=== PATIENT | male | born 1975 | race African-American/Black ===

== ENCOUNTER 2016-03-06 23:56 | Emergency (ER) | payer OTHER ==
[~2016-03-06] VITALS: Ht 170.2 cm; Wt 88.9 kg
[2016-03-07 00:38] VITALS: BP 129/90
== END 2016-03-07 05:10 | disposition home or self-care (01) ==
LOC: ER 23:58
DX: M25.511 Pain in right shoulder (principal); G89.29 Other chronic pain; F17.200 Nicotine dependence, unspecified, uncomplicated; Z88.8 Allergy status to other drugs, medicaments and biological substances
CPT/HCPCS: A4606; Z7502; Z7610

== ENCOUNTER 2016-04-15 01:19 | Emergency (ER) | payer OTHER ==
[~2016-04-15] VITALS: Ht 170.2 cm; Wt 99.3 kg
[2016-04-15 01:56] VITALS: BP 143/87
== END 2016-04-15 03:40 | disposition home or self-care (01) ==
LOC: ER 01:19
DX: Z76.0 Encounter for issue of repeat prescription (principal); G89.29 Other chronic pain; F17.200 Nicotine dependence, unspecified, uncomplicated; Z59.0 Homelessness; Z98.2 Presence of cerebrospinal fluid drainage device; Z88.8 Allergy status to other drugs, medicaments and biological substances; Z91.018 Allergy to other foods
CPT/HCPCS: A4606; Z7610

== ENCOUNTER 2016-04-28 01:33 | Emergency (ER) | payer OTHER ==
[~2016-04-28] VITALS: Ht 170.2 cm; Wt 86.6 kg
[2016-04-28 01:49] VITALS: BP 132/83
== END 2016-04-28 01:58 | disposition left against medical advice (07) ==
LOC: ER 01:33
DX: Z53.21 Procedure and treatment not carried out due to patient leaving prior to being seen by health care provider (principal)
CPT/HCPCS: A4606; Z7610

== ENCOUNTER 2016-04-30 01:17 | Emergency (ER) | payer OTHER | END 2016-04-30 03:22 | disposition left against medical advice (07) | LOC: ER 01:20 | DX: Z53.21 Procedure and treatment not carried out due to patient leaving prior to being seen by health care provider (principal) ==

== ENCOUNTER 2016-05-01 20:11 | Emergency (ER) | payer OTHER ==
[~2016-05-01] VITALS: Ht 177.8 cm; Wt 90.7 kg
[2016-05-01 20:44] LABS: BASOPHILS % (AUTO) 0.5 % (0.0-2.0); DIFF TOTAL % 100 %; EOSINOPHILS # (AUTO) 0.3 /CMM (0.0-0.7); EOSINOPHILS % (AUTO) 3.9 % (0.0-6.0); HEMATOCRIT 40 % (39-51); HEMOGLOBIN 13.8 g/dL (13.5-17.5); LYMPHOCYTES # (AUTO) 2.7 /CMM (0.8-4.8); MEAN CORPUSCULAR HEMOGLOBIN 33 PG (26.0-33.0); MEAN CORPUSCULAR HGB CONC 34 g/dl (31.0-36.0); MEAN CORPUSCULAR VOLUME 97 fL (80-96); MONOCYTES # (AUTO) 0.4 /CMM (0.1-1.30); MONOCYTES % (AUTO) 5.8 % (2.0-12.0); NEUTROPHILS # (AUTO) 3.4 /CMM (1.8-8.9); NEUTROPHILS % (AUTO) 49.8 % (43.0-81.0); PLATELET COUNT (AUTO) 255 /CMM (150-450); RED BLOOD CELL COUNT(AUTO) 4.16 MIL/uL (4.5-6.0); WHITE BLOOD COUNT (AUTO) 6.8 K/uL (4.3-11.0)
[2016-05-01 20:51] LABS: KETONES,URINE Negative (NEGATIVE); LEUKOCYTE ESTERASE ,URINE Negative (NEGATIVE); PH,URINE 5.5 (5.0-8.0)
[2016-05-01 20:53] LABS: ANION GAP 9 (5-14); CALCIUM, SERUM 8.8 mg/dL (8.5-10.1); CARBON DIOXIDE 32 mmol/L (21-32); CHLORIDE 107 mmol/L (98-107); CREATININE 1.1 mg/dL (0.6-1.3); GFR 91 mL/min (>60); GLUCOSE 103 mg/dL (74-106); SODIUM SERUM 144 mmol/L (136-145); UREA NITROGEN, BLOOD 7 mg/dL (7-18)
[2016-05-01 20:59] LABS: ADD UA MICROSCOPIC YES
[2016-05-01 21:00] LABS: ALANINE AMINOTRANSFERASE 33 U/L (12-78); ALBUMIN 3.9 g/dL (3.4-5.0); ASPARTATE AMINOTRANSFERASE 27 U/L (15-37); BILIRUBIN,DIRECT 0.1 mg/dL (0.0-0.2); BILIRUBIN,TOTAL 0.3 mg/dL (0.2-1.0); INDIRECT BILIRUBIN 0.2 mg/dL (0.0-1.1); SALICYLATE 4.3 mg/dL (2.8-20.0); TOTAL PROTEIN, SERUM 7.7 g/dL (6.4-8.2)
[2016-05-01 21:01] LABS: ACETAMINOPHEN < 2 ug/ml (10-30)
[2016-05-01 21:08] LABS: ADD URINE CULTURE NO; WBC,URINE 0-2 /HPF (0-3)
[2016-05-01 21:16] LABS: CANNABINOID, URINE NEGATIVE (NEGATIVE); PHENCYCLIDINE SCREEN,URINE NEGATIVE (NEGATIVE)
[2016-05-01 21:27] VITALS: BP 138/71
== END 2016-05-01 21:24 | disposition home or self-care (01) ==
LOC: ER 20:12
DX: F32.9 Major depressive disorder, single episode, unspecified (principal); I10 Essential (primary) hypertension; G40.909 Epilepsy, unspecified, not intractable, without status epilepticus; F31.9 Bipolar disorder, unspecified; F20.9 Schizophrenia, unspecified; Z98.890 Other specified postprocedural states; Z88.8 Allergy status to other drugs, medicaments and biological substances; F17.200 Nicotine dependence, unspecified, uncomplicated; Z59.0 Homelessness; Z91.018 Allergy to other foods
CPT/HCPCS: 36415; 80048; 80076; 80305; 80329; 81001; 85025; 99284; A4606; G0480 ×2; Z7610; 81000-TC; G6039-TC

== ENCOUNTER 2016-05-19 04:24 | Emergency (ER) | payer OTHER ==
[~2016-05-19] VITALS: Ht 170.2 cm; Wt 79.4 kg
[2016-05-19 04:28] VITALS: BP 131/95
[2016-05-19] MEDS ORDERED: IBUPROFEN 400 MG TABLET ONE (04:30)
[2016-05-19] MEDS ORDERED: IBUPROFEN 400 MG TABLET PO ONE (05:00)
== END 2016-05-19 04:38 | disposition home or self-care (01) ==
LOC: ER 04:24
DX: M25.561 Pain in right knee (principal); G89.29 Other chronic pain; F17.200 Nicotine dependence, unspecified, uncomplicated; Z76.5 Malingerer [conscious simulation]; Z98.2 Presence of cerebrospinal fluid drainage device; Z59.0 Homelessness; Z88.8 Allergy status to other drugs, medicaments and biological substances; Z91.018 Allergy to other foods
CPT/HCPCS: 99282; A4606; Z7610

== ENCOUNTER 2016-06-06 02:46 | Emergency (ER) | payer OTHER ==
[~2016-06-06] VITALS: Ht 170.2 cm; Wt 85.7 kg
[2016-06-06] MEDS ORDERED: OLANZAPINE 5 MG TABLET ONE (03:16)
[2016-06-06] MEDS ORDERED: OLANZAPINE 5 MG TABLET PO ONE (03:30)
[2016-06-06] MEDS ORDERED: OLANZAPINE 5 MG/TAB.RAPDIS PO ONE (03:30)
--- NOTE | 2016-06-06 03:32 | NUR ---
PT PRESENTED TO THE ER WITH A C/O SI WITHOUT A PLAN. PT STATED THAT HE WANTS TO HURT SOMEONE NAMED CHRISTOPHER, BUT DOES NOT KNOW ANYONE BY THAT NAME. PT AMBULATED TO BED #15 AND CHANGED INTO A GOWN.
[2016-06-06 03:34] LABS: BASOPHILS % (AUTO) 0.2 % (0.0-2.0); EOSINOPHILS # (AUTO) 0.2 /CMM (0.0-0.7); EOSINOPHILS % (AUTO) 2.7 % (0.0-6.0); HEMATOCRIT 41 % (39-51); HEMOGLOBIN 13.9 g/dL (13.5-17.5); LYMPHOCYTES # (AUTO) 2.2 /CMM (0.8-4.8); LYMPHOCYTES % (AUTO) 36.3 % (20.0-44.0); MEAN CORPUSCULAR HEMOGLOBIN 33 PG (26.0-33.0); MEAN CORPUSCULAR HGB CONC 34 g/dl (31.0-36.0); MEAN CORPUSCULAR VOLUME 97 fL (80-96); MONOCYTES # (AUTO) 0.5 /CMM (0.1-1.30); MONOCYTES % (AUTO) 7.7 % (2.0-12.0); NEUTROPHILS # (AUTO) 3.2 /CMM (1.8-8.9); NEUTROPHILS % (AUTO) 53.1 % (43.0-81.0); PLATELET COUNT (AUTO) 240 /CMM (150-450); RDW COEFFICIENT OF VARIATION 14.9 (11.5-15.0); RED BLOOD CELL COUNT(AUTO) 4.24 MIL/uL (4.5-6.0)
[2016-06-06 03:49] LABS: ALBUMIN 3.6 g/dL (3.4-5.0); BILIRUBIN,DIRECT 0.1 mg/dL (0.0-0.2); BILIRUBIN,TOTAL 0.2 mg/dL (0.2-1.0); CALCIUM, SERUM 8.2 mg/dL (8.5-10.1); CREATININE 1.1 mg/dL (0.6-1.3); SALICYLATE 3.6 mg/dL (2.8-20.0); TOTAL PROTEIN, SERUM 7.4 g/dL (6.4-8.2)
--- NOTE | 2016-06-06 03:54 | NUR ---
PT APPEARS TO BE SLEEPING SOUNDLY WITH NO S/S OF PAIN OR DISTRESS.
--- NOTE | 2016-06-06 05:11 | NUR ---
PT APPEARS TO BE RESTING COMFORTABLY WITH NO S/S OF PAIN OR DISTRESS. PT TO GIVE A URINE SAMPLE.
--- NOTE | 2016-06-06 05:18 | NUR ---
URINE SAMPLE OBTAINED AND LAB CALLED FOR P/U.
[2016-06-06 05:28] LABS: APPEARANCE,URINE CLEAR (CLEAR); BILIRUBIN,URINE NEGATIVE (NEGATIVE); BLOOD, URINE 2+ Ery/uL (NEGATIVE); COLOR,URINE YELLOW (YELLOW); KETONES,URINE NEGATIVE (NEGATIVE); LEUKOCYTE ESTERASE ,URINE NEGATIVE (NEGATIVE); NITRITE, URINE NEGATIVE (NEGATIVE); PROTEIN,URINE NEGATIVE (NEGATIVE); UGLUCOSE NEGATIVE (NEGATIVE); UROBILINOGEN,URINE 0.2 EU/dL (0.2)
[2016-06-06 05:47] LABS: PHENCYCLIDINE SCREEN,URINE NEGATIVE (NEGATIVE)
[2016-06-06 05:48] LABS: ADD URINE CULTURE NO; BACTERIA,URINE None seen /HPF (None Seen); CANNABINOID, URINE POSITIVE (NEGATIVE); MUCUS,URINE Rare /LPF (None Seen); SQUAMOUS EPITHELIAL CELL,UR Rare /HPF (None Seen); WBC,URINE 0-2 /HPF (0-3)
[2016-06-06 06:43] VITALS: BP 121/76
--- NOTE | 2016-06-06 06:48 | NUR ---
PT WOKE UP AND IS STILL EXPRESSING SI. DR. WEST IS AWARE.
--- NOTE | 2016-06-06 07:17 | NUR ---
REPORT GIVEN TO RAHEL PINA FOR [facility].
--- NOTE | 2016-06-06 08:05 | NUR ---
ALFREDO TANG CALLED [phone], ETA ~ 60 MIN
--- NOTE | 2016-06-06 09:10 | NUR ---
P[employer] TECHNICIAN AT BEDSIDE
--- NOTE | 2016-06-06 11:10 | NUR ---
report given to scott vanegas from [facility] for eyal
--- NOTE | 2016-06-06 11:15 | NUR ---
[facility] CALLED ETA ~ 45-60 MIN
--- NOTE | 2016-06-06 13:10 | NUR ---
Patient eloped from facility. ER MD notified.
== END 2016-06-06 13:10 | disposition left against medical advice (07) ==
LOC: ER 02:49
DX: F25.9 Schizoaffective disorder, unspecified (principal); F12.10 Cannabis abuse, uncomplicated; F17.200 Nicotine dependence, unspecified, uncomplicated; F31.9 Bipolar disorder, unspecified; Z91.19 Patient's noncompliance with other medical treatment and regimen; Z59.0 Homelessness; Z98.2 Presence of cerebrospinal fluid drainage device; Z88.8 Allergy status to other drugs, medicaments and biological substances; Z91.018 Allergy to other foods
CPT/HCPCS: 36415; 80048-TC; 80076-TC; 80305; 81000-TC; 85025-TC; A4606; G0480; G6039-TC; Z7610

== ENCOUNTER 2016-06-24 22:12 | Emergency (ER) | payer OTHER ==
[~2016-06-24] VITALS: Ht 172.7 cm; Wt 74.8 kg
--- NOTE | 2016-06-24 23:00 | NUR ---
PT BIB SELF C/O PERIUMBILICAL ABD PAIN X2 DAYS, WHICH GETS WORSE AFTER EATING. DENIES N/V/D/DYSURIA/HEMATURIA/CONSTIPATION. RESP EVEN UNLABORED. SKIN WARM NONDIAPHORETIC. NAD NOTED. AMBULATORY WITH STEADY GAIT. PT REPORTS DRINKING ETOH 2X WEEKLY, SMOKES CIGARETTES AND MARIJUANA; DOES NOT APPEAR UNDER THE INFLUENCE AT THIS TIME. IN ER BED 09.
--- NOTE | 2016-06-25 00:06 | NUR ---
Magda ruiz in [facility] - 06/25/16 at 0112 by [facility] REPORT GIVEN TO CAPRI LEGGETT RN WALE
[2016-06-25 01:11] VITALS: BP 127/68
--- NOTE | 2016-06-25 01:12 | NUR ---
Patient is resting comfortably in bed with eyes closed. Easily aroused. VSS
[2016-06-25 01:20] LABS: BASOPHILS # (AUTO) 0.1 /CMM (0.0-0.2); BASOPHILS % (AUTO) 1.2 % (0.0-2.0); EOSINOPHILS # (AUTO) 0.1 /CMM (0.0-0.7); EOSINOPHILS % (AUTO) 1.7 % (0.0-6.0); HEMATOCRIT 39 % (39-51); HEMOGLOBIN 13.3 g/dL (13.5-17.5); LYMPHOCYTES # (AUTO) 2.9 /CMM (0.8-4.8); LYMPHOCYTES % (AUTO) 43.7 % (20.0-44.0); MEAN CORPUSCULAR HEMOGLOBIN 33 PG (26.0-33.0); MEAN CORPUSCULAR HGB CONC 34 g/dl (31.0-36.0); MEAN CORPUSCULAR VOLUME 97 fL (80-96); MONOCYTES # (AUTO) 0.5 /CMM (0.1-1.30); MONOCYTES % (AUTO) 6.8 % (2.0-12.0); NEUTROPHILS # (AUTO) 3.1 /CMM (1.8-8.9); NEUTROPHILS % (AUTO) 46.6 % (43.0-81.0); PLATELET COUNT (AUTO) 238 /CMM (150-450); RDW COEFFICIENT OF VARIATION 14.6 (11.5-15.0); RED BLOOD CELL COUNT(AUTO) 4.04 MIL/uL (4.5-6.0); WHITE BLOOD COUNT (AUTO) 6.7 K/uL (4.3-11.0)
[2016-06-25 01:30] LABS: CALCIUM, SERUM 8.4 mg/dL (8.5-10.1); CREATININE 1.2 mg/dL (0.6-1.3); POTASSIUM 3.7 mmol/L (3.5-5.1)
[2016-06-25 01:32] LABS: INR 1.01 (0.87-1.13); PROTHROMBIN TIME 10.8 SECS (9.5-12.7)
[2016-06-25 01:36] LABS: ALBUMIN 3.5 g/dL (3.4-5.0); BILIRUBIN,TOTAL 0.2 mg/dL (0.2-1.0); TOTAL PROTEIN, SERUM 7.1 g/dL (6.4-8.2)
--- NOTE | 2016-06-25 01:45 | NUR ---
Patient discharged to home in stable condition. Written and verbal after care instructions given. Patient verbalizes understanding of instruction. Ambulatory with a steady gait.
== END 2016-06-25 01:45 | disposition home or self-care (01) ==
LOC: ER 22:16
DX: R10.84 Generalized abdominal pain (principal); F31.9 Bipolar disorder, unspecified; F20.9 Schizophrenia, unspecified; G40.909 Epilepsy, unspecified, not intractable, without status epilepticus; Z59.0 Homelessness; Z88.8 Allergy status to other drugs, medicaments and biological substances; Z91.018 Allergy to other foods; Z98.2 Presence of cerebrospinal fluid drainage device
CPT/HCPCS: 36415; 80048-TC; 80076-TC; 83690-TC; 85025-TC; 85730-TC; A4606; Z7610

== ENCOUNTER 2016-10-17 03:42 | Emergency (ER) | payer OTHER ==
[~2016-10-17] VITALS: Ht 177.8 cm; Wt 90.7 kg
--- NOTE | 2016-10-17 03:56 | NUR ---
PT TO ER C/O SUICIDAL IDEATION AND DEPRESSION. PT DENIES ANY MEDICAL COMPLAINT. PT TO ER BED, CHANGED INTO GOWN AND CONNECTED TO MONITOR. PT VITAL SIGNS NORMAL. SUICIDE PRECAUTIONS IMPLEMENTED. WILL CONT TO MONITOR PT.
--- NOTE | 2016-10-17 03:57 | NUR ---
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
[2016-10-17 04:10] LABS: BASOPHILS # (AUTO) 0.1 /CMM (0.0-0.2); BASOPHILS % (AUTO) 1.1 % (0.0-2.0); EOSINOPHILS # (AUTO) 0.2 /CMM (0.0-0.7); EOSINOPHILS % (AUTO) 2.7 % (0.0-6.0); HEMATOCRIT 42 % (39-51); HEMOGLOBIN 14.5 g/dL (13.5-17.5); LYMPHOCYTES # (AUTO) 2.3 /CMM (0.8-4.8); LYMPHOCYTES % (AUTO) 36.6 % (20.0-44.0); MEAN CORPUSCULAR HEMOGLOBIN 34 PG (26.0-33.0); MEAN CORPUSCULAR HGB CONC 35 g/dl (31.0-36.0); MEAN CORPUSCULAR VOLUME 98 fL (80-96); MONOCYTES # (AUTO) 0.4 /CMM (0.1-1.30); NEUTROPHILS # (AUTO) 3.4 /CMM (1.8-8.9); NEUTROPHILS % (AUTO) 53.6 % (43.0-81.0); PLATELET COUNT (AUTO) 279 /CMM (150-450); RDW COEFFICIENT OF VARIATION 14.8 (11.5-15.0); RED BLOOD CELL COUNT(AUTO) 4.26 MIL/uL (4.5-6.0); WHITE BLOOD COUNT (AUTO) 6.4 K/uL (4.3-11.0)
[2016-10-17 04:26] LABS: CALCIUM, SERUM 8.4 mg/dL (8.5-10.1); CREATININE 1.2 mg/dL (0.6-1.3); POTASSIUM 4.1 mmol/L (3.5-5.1)
[2016-10-17 04:28] LABS: APPEARANCE,URINE CLEAR (CLEAR); BILIRUBIN,URINE NEGATIVE (NEGATIVE); BLOOD, URINE 3+ Ery/uL (NEGATIVE); COLOR,URINE YELLOW (YELLOW); KETONES,URINE NEGATIVE (NEGATIVE); LEUKOCYTE ESTERASE ,URINE NEGATIVE (NEGATIVE); NITRITE, URINE NEGATIVE (NEGATIVE); PROTEIN,URINE NEGATIVE (NEGATIVE); UGLUCOSE NEGATIVE (NEGATIVE); UROBILINOGEN,URINE 0.2 EU/dL (0.2)
[2016-10-17 04:35] LABS: BILIRUBIN,DIRECT 0.1 mg/dL (0.0-0.2); BILIRUBIN,TOTAL 0.2 mg/dL (0.2-1.0); SALICYLATE 3.4 mg/dL (2.8-20.0); TOTAL PROTEIN, SERUM 7.9 g/dL (6.4-8.2)
[2016-10-17 04:40] LABS: BACTERIA,URINE None seen /HPF (None Seen); SQUAMOUS EPITHELIAL CELL,UR Few /HPF (None Seen); URIC ACID CRYSTALS,URINE Many /HPF (None Seen); WBC,URINE 0-2 /HPF (0-3)
--- NOTE | 2016-10-17 07:00 | NUR ---
Patient is resting comfortably in bed with eyes closed. Easily aroused. VSS
--- NOTE | 2016-10-17 08:37 | NUR ---
Patient is resting comfortably in bed with eyes closed. Easily aroused. VSS
[2016-10-17 08:46] VITALS: BP 130/86
--- NOTE | 2016-10-17 10:08 | NUR ---
ACCEPTED BY DR CHAVEZ TO [facility] [phone]
--- NOTE | 2016-10-17 10:24 | NUR ---
REPORT GIVEN TO NURSE DAVID SANTIZO WILL GO TO THE ED FIRST FOR REGISTRATION [id number]
--- NOTE | 2016-10-17 10:37 | NUR ---
CALLED TRANSPORT ETA 60 MIN REMY DRISCOLL
--- NOTE | 2016-10-17 11:25 | NUR ---
PT REFUSED TRANSFER TO [facility] AND WALKED OUT FROM THE ER.
--- NOTE | 2016-10-17 11:25 | NUR ---
CALLED [facility] TO CANCEL TRANSPORTATION
--- NOTE | 2016-10-17 11:26 | NUR ---
CALLED [facility] SPOKE WITH INTAKE DEAN NOTIFIED HER THAT PATIENT REFUSED TRANSPORTATION AND ADMISSION
== END 2016-10-17 11:28 | disposition left against medical advice (07) ==
LOC: ER 03:45
DX: F10.129 Alcohol abuse with intoxication, unspecified (principal); R45.851 Suicidal ideations; F32.9 Major depressive disorder, single episode, unspecified; F25.9 Schizoaffective disorder, unspecified; F31.9 Bipolar disorder, unspecified; Z59.0 Homelessness; Z98.2 Presence of cerebrospinal fluid drainage device; Z88.8 Allergy status to other drugs, medicaments and biological substances; Z91.02 Food additives allergy status
CPT/HCPCS: 36415; 80048; 80076; 80305; 80329; 81001; 85025; 99284; A4606; G0480 ×2; Z7610; 81000-TC

== ENCOUNTER 2016-11-29 21:16 | Emergency (ER) | payer OTHER ==
[~2016-11-29] VITALS: Ht 170.2 cm; Wt 88.0 kg
[2016-11-29 21:18] VITALS: BP 132/85
== END 2016-11-29 22:27 | disposition home or self-care (01) ==
LOC: ER 21:17
DX: S01.511A Laceration without foreign body of lip, initial encounter (principal); F10.129 Alcohol abuse with intoxication, unspecified; Z98.2 Presence of cerebrospinal fluid drainage device; Z88.8 Allergy status to other drugs, medicaments and biological substances; Z91.018 Allergy to other foods; Z59.0 Homelessness; Y04.8XXA Assault by other bodily force, initial encounter; Y92.89 Other specified places as the place of occurrence of the external cause; Y93.89 Activity, other specified; Y99.8 Other external cause status
CPT/HCPCS: 12011; 99283; A4606; A6403; J3490 ×2; Z7610

== ENCOUNTER 2016-12-09 07:12 | Emergency (ER) | payer OTHER ==
[~2016-12-09] VITALS: Ht 170.2 cm; Wt 86.2 kg
[2016-12-09 07:16] VITALS: BP 150/80
--- NOTE | 2016-12-09 07:29 | NUR ---
urine obtained sent to lab
--- NOTE | 2016-12-09 07:40 | NUR ---
lab at bedside for draw
[2016-12-09 07:46] LABS: BASOPHILS % (AUTO) 0.3 % (0.0-2.0); EOSINOPHILS % (AUTO) 0.1 % (0.0-6.0); HEMATOCRIT 44 % (39-51); HEMOGLOBIN 15.1 g/dL (13.5-17.5); LYMPHOCYTES # (AUTO) 1.1 /CMM (0.8-4.8); LYMPHOCYTES % (AUTO) 17.7 % (20.0-44.0); MEAN CORPUSCULAR HEMOGLOBIN 34 PG (26.0-33.0); MEAN CORPUSCULAR HGB CONC 34 g/dl (31.0-36.0); MEAN CORPUSCULAR VOLUME 99 fL (80-96); MONOCYTES # (AUTO) 0.3 /CMM (0.1-1.30); MONOCYTES % (AUTO) 4.8 % (2.0-12.0); NEUTROPHILS # (AUTO) 4.7 /CMM (1.8-8.9); NEUTROPHILS % (AUTO) 77.1 % (43.0-81.0); PLATELET COUNT (AUTO) 293 /CMM (150-450); RDW COEFFICIENT OF VARIATION 13.6 (11.5-15.0); WHITE BLOOD COUNT (AUTO) 6.1 K/uL (4.3-11.0)
[2016-12-09 07:50] LABS: APPEARANCE,URINE SL CLOUDY (CLEAR); BILIRUBIN,URINE NEGATIVE (NEGATIVE); BLOOD, URINE 3+ Ery/uL (NEGATIVE); COLOR,URINE YELLOW (YELLOW); KETONES,URINE TRACE (NEGATIVE); LEUKOCYTE ESTERASE ,URINE NEGATIVE (NEGATIVE); NITRITE, URINE NEGATIVE (NEGATIVE); PROTEIN,URINE 1+ mg/dl (NEGATIVE); UGLUCOSE NEGATIVE (NEGATIVE)
[2016-12-09 07:59] LABS: BACTERIA,URINE None seen /HPF (None Seen); SQUAMOUS EPITHELIAL CELL,UR 0-2 /HPF (None Seen); WBC,URINE 0-2 /HPF (0-3)
[2016-12-09] MEDS ORDERED: LEVETIRACETAM (250 MG) 250 MG TABLET PO ONE ×2 (08:10→08:30)
[2016-12-09 08:27] LABS: BILIRUBIN,DIRECT 0.1 mg/dL (0.0-0.2); BILIRUBIN,TOTAL 0.5 mg/dL (0.2-1.0); CALCIUM, SERUM 9.2 mg/dL (8.5-10.1); CREATININE 1.1 mg/dL (0.6-1.3); POTASSIUM 4.2 mmol/L (3.5-5.1); TOTAL PROTEIN, SERUM 8.3 g/dL (6.4-8.2)
[2016-12-09 08:48] LABS: SALICYLATE 1.8 mg/dL (2.8-20.0)
--- NOTE | 2016-12-09 09:26 | NUR ---
CALLED PETER MCGINNIS FOR EVAL ETA 1 HOUR
--- NOTE | 2016-12-09 12:15 | NUR ---
PER [facility]ER WAITING ON [facility] [employer]
--- NOTE | 2016-12-09 13:19 | NUR ---
CALLED [facility] TO SET UP S TRANSPORT ETA [phone] TRIP#[id number]
--- NOTE | 2016-12-09 13:23 | NUR ---
REPORT GIVEN TO ROSALBA MCGINNIS FROM [facility]
== END 2016-12-09 13:49 ==
LOC: ER 07:14
DX: R45.851 Suicidal ideations (principal); G40.909 Epilepsy, unspecified, not intractable, without status epilepticus; F31.9 Bipolar disorder, unspecified; F10.10 Alcohol abuse, uncomplicated; F25.9 Schizoaffective disorder, unspecified; Z59.0 Homelessness; Z88.8 Allergy status to other drugs, medicaments and biological substances; Z71.6 Tobacco abuse counseling; Z91.018 Allergy to other foods; Z98.2 Presence of cerebrospinal fluid drainage device
CPT/HCPCS: 36415; 80048; 80076; 80305; 80329; 81001; 85025; 99285; A4606; G0480 ×2; Z7610; 81000-TC

== ENCOUNTER 2016-12-19 06:19 | Emergency (ER) | payer OTHER ==
[~2016-12-19] VITALS: Ht 172.7 cm; Wt 72.6 kg
--- NOTE | 2016-12-19 06:38 | NUR ---
PT BIB SELF TO ER BED 9 AMBULATORY. PT STATES HE IS DEPRESSED AND WANTS TO OVERDOSE ON SERIQUEL DENIES HI. VSS/RESP EVEN AND UNLABORED/NAD NOTED/SKIN WARM AND DRY.
[2016-12-19 06:41] LABS: BASOPHILS % (AUTO) 0.8 % (0.0-2.0); EOSINOPHILS % (AUTO) 0.7 % (0.0-6.0); HEMATOCRIT 45 % (39-51); HEMOGLOBIN 15.1 g/dL (13.5-17.5); LYMPHOCYTES # (AUTO) 1.8 /CMM (0.8-4.8); LYMPHOCYTES % (AUTO) 36.1 % (20.0-44.0); MEAN CORPUSCULAR HEMOGLOBIN 33 PG (26.0-33.0); MEAN CORPUSCULAR HGB CONC 34 g/dl (31.0-36.0); MEAN CORPUSCULAR VOLUME 99 fL (80-96); MONOCYTES # (AUTO) 0.4 /CMM (0.1-1.30); MONOCYTES % (AUTO) 7.5 % (2.0-12.0); NEUTROPHILS # (AUTO) 2.8 /CMM (1.8-8.9); NEUTROPHILS % (AUTO) 54.9 % (43.0-81.0); PLATELET COUNT (AUTO) 269 /CMM (150-450); RDW COEFFICIENT OF VARIATION 13.2 (11.5-15.0); RED BLOOD CELL COUNT(AUTO) 4.54 MIL/uL (4.5-6.0); WHITE BLOOD COUNT (AUTO) 5.1 K/uL (4.3-11.0)
[2016-12-19 06:44] LABS: APPEARANCE,URINE CLEAR (CLEAR); BILIRUBIN,URINE NEGATIVE (NEGATIVE); BLOOD, URINE 3+ Ery/uL (NEGATIVE); COLOR,URINE DARK YELLO (YELLOW); KETONES,URINE TRACE (NEGATIVE); LEUKOCYTE ESTERASE ,URINE NEGATIVE (NEGATIVE); NITRITE, URINE NEGATIVE (NEGATIVE); PROTEIN,URINE 1+ mg/dl (NEGATIVE); UGLUCOSE NEGATIVE (NEGATIVE); UROBILINOGEN,URINE 0.2 EU/dL (0.2)
--- NOTE | 2016-12-19 06:47 | NUR ---
PT PLACED ON VS MONITOR.
[2016-12-19 06:48] VITALS: BP 140/91
[2016-12-19 06:54] LABS: CALCIUM, SERUM 9.4 mg/dL (8.5-10.1); CARBON DIOXIDE 29 mmol/L (21-32); CHLORIDE 104 mmol/L (98-107); GLUCOSE 130 mg/dL (74-106); POTASSIUM 3.8 mmol/L (3.5-5.1); SODIUM SERUM 141 mmol/L (136-145); UREA NITROGEN, BLOOD 14 mg/dL (7-18)
[2016-12-19 07:00] LABS: ALANINE AMINOTRANSFERASE 51 U/L (12-78); ALCOHOL, BLOOD < 3 mg/dL (0-0); ALKALINE PHOSPHATASE 136 U/L (46-116); ASPARTATE AMINOTRANSFERASE 36 U/L (15-37); BILIRUBIN,DIRECT 0.1 mg/dL (0.0-0.2); BILIRUBIN,TOTAL 0.6 mg/dL (0.2-1.0); TOTAL PROTEIN, SERUM 8.3 g/dL (6.4-8.2)
[2016-12-19 07:02] LABS: ACETAMINOPHEN < 2 ug/ml (10-30)
--- NOTE | 2016-12-19 07:13 | NUR ---
REPORT GIVEN TO RAHEL JOHNSON FOR [facility].
--- NOTE | 2016-12-19 07:14 | NUR ---
REPORT GIVEN TO RAHEL JOHNSON.
[2016-12-19 07:19] LABS: BACTERIA,URINE Rare /HPF (None Seen); RBC,URINE 20-30 /HPF (0-2); SQUAMOUS EPITHELIAL CELL,UR Rare /HPF (None Seen); WBC,URINE 0-2 /HPF (0-3)
--- NOTE | 2016-12-19 07:24 | NUR ---
Patient eloped from facility. ER MD notified.
== END 2016-12-19 07:26 | disposition left against medical advice (07) ==
LOC: ER 06:21
DX: F31.9 Bipolar disorder, unspecified (principal); F25.9 Schizoaffective disorder, unspecified; F10.10 Alcohol abuse, uncomplicated; Z98.2 Presence of cerebrospinal fluid drainage device; Z59.0 Homelessness; Z88.8 Allergy status to other drugs, medicaments and biological substances; Z91.018 Allergy to other foods
CPT/HCPCS: 36415; 80048; 80076; 80305; 81001; 85025; 99284; A4606; G0480 ×2; Z7610; 81000-TC

== ENCOUNTER 2017-06-04 14:09 | Emergency (ER) | payer MEDICAID, OTHER ==
[~2017-06-04] VITALS: Ht 170.2 cm; Wt 87.1 kg
--- NOTE | 2017-06-04 14:09 | NUR ---
[facility] 41 AND [employer] FROM [place] C/O ETOH . DENIES SI/HI
--- NOTE | 2017-06-04 14:52 | NUR ---
PT AMBULATORY STEADY GAIT. DENIES SI /HI .Patient discharged to home in stable condition. Written and verbal after care instructions given. Patient verbalizes understanding of instruction.
[2017-06-04 14:53] VITALS: BP 125/80
== END 2017-06-04 14:53 | disposition home or self-care (01) ==
LOC: ER 14:11
DX: F10.129 Alcohol abuse with intoxication, unspecified (principal); F17.200 Nicotine dependence, unspecified, uncomplicated; F12.90 Cannabis use, unspecified, uncomplicated; F25.9 Schizoaffective disorder, unspecified; F31.9 Bipolar disorder, unspecified; G40.909 Epilepsy, unspecified, not intractable, without status epilepticus; J45.909 Unspecified asthma, uncomplicated; Z98.2 Presence of cerebrospinal fluid drainage device; Z88.8 Allergy status to other drugs, medicaments and biological substances; Z59.0 Homelessness; Z91.018 Allergy to other foods
CPT/HCPCS: 99283; 99406; A4606; Z7610

== ENCOUNTER 2018-03-14 14:54 | Emergency (ER) | payer MEDICAID, OTHER ==
[~2018-03-14] VITALS: Ht 170.2 cm; Wt 90.7 kg
[2018-03-14 15:17] VITALS: BP 143/86
[2018-03-14] MEDS ORDERED: KETOROLAC TROMETHAMINE INJ 30 MG/ML VIAL IV ONE (16:30)
[2018-03-14] MEDS ORDERED: KETOROLAC TROMETHAMINE 15 MG/ML VIAL ONE (16:42)
== END 2018-03-14 18:14 | disposition home or self-care (01) ==
LOC: ER 14:54
DX: S76.811A Strain of other specified muscles, fascia and tendons at thigh level, right thigh, initial encounter (principal); F17.200 Nicotine dependence, unspecified, uncomplicated; J45.909 Unspecified asthma, uncomplicated; Z98.890 Other specified postprocedural states; Z88.8 Allergy status to other drugs, medicaments and biological substances; Z91.018 Allergy to other foods; Z59.0 Homelessness; X58.XXXA Exposure to other specified factors, initial encounter; Y93.89 Activity, other specified; Y92.89 Other specified places as the place of occurrence of the external cause; Y99.8 Other external cause status
CPT/HCPCS: 93971; 96374; 99284; A4606; J1885; J7030; Z7610

== ENCOUNTER 2023-10-04 02:19 | Emergency (ER) | payer OTHER | END 2023-10-04 02:54 | disposition left against medical advice (07) | LOC: ER 02:27 | DX: F32.A Depression, unspecified (principal); Z53.21 Procedure and treatment not carried out due to patient leaving prior to being seen by health care provider ==

== ENCOUNTER 2023-12-25 19:02 | Emergency (ER) | payer OTHER ==
[~2023-12-25] VITALS: Ht 170.2 cm; Wt 95.3 kg
[2023-12-25 21:40] LABS: BASOPHILS % (AUTO) 0.9 % (0.0-2.0); EOSINOPHILS % (AUTO) 0.4 % (0.0-6.0); HEMATOCRIT 42 % (39-51); HEMOGLOBIN 14.4 g/dL (13.5-17.5); LYMPHOCYTES # (AUTO) 1.4 K/uL (0.8-4.8); LYMPHOCYTES % (AUTO) 26.9 % (20.0-44.0); MEAN CORPUSCULAR HEMOGLOBIN 34 PG (26.0-33.0); MEAN CORPUSCULAR HGB CONC 34 g/dl (31.0-36.0); MEAN CORPUSCULAR VOLUME 99 fL (80-96); MONOCYTES # (AUTO) 0.2 K/uL (0.1-1.30); MONOCYTES % (AUTO) 3.2 % (2.0-12.0); NEUTROPHILS # (AUTO) 3.7 K/uL (1.8-8.9); NEUTROPHILS % (AUTO) 68.6 % (43.0-81.0); PLATELET COUNT (AUTO) 281 K/uL (150-450); RED BLOOD CELL COUNT(AUTO) 4.25 MIL/uL (4.5-6.0); RED CELL DISTRIBUTION WIDTH 15.4 % (11.5-15.0); WHITE BLOOD COUNT (AUTO) 5.4 K/uL (4.3-11.0)
[2023-12-25 21:50] LABS: CARBON DIOXIDE 34 mmol/L (21-32); CHLORIDE 105 mmol/L (98-107); CREATININE 1.3 mg/dL (0.6-1.3); GLUCOSE 156 mg/dL (74-106); POTASSIUM 4.2 mmol/L (3.5-5.1); SODIUM SERUM 145 mmol/L (136-145); UREA NITROGEN, BLOOD 21 mg/dL (7-18)
[2023-12-25 21:56] LABS: ACETAMINOPHEN < 2 ug/ml (10-30); ALANINE AMINOTRANSFERASE 62 U/L (12-78); ALCOHOL, BLOOD 195 mg/dL (0-10); ALKALINE PHOSPHATASE 140 U/L (46-116); ASPARTATE AMINOTRANSFERASE 38 U/L (15-37); BILIRUBIN,DIRECT 0.1 mg/dL (0.0-0.2); BILIRUBIN,TOTAL 0.3 mg/dL (0.2-1.0); TOTAL PROTEIN, SERUM 8.2 g/dL (6.4-8.2)
[2023-12-26 00:30] LABS: AMPHETAMINE, URINE NEGATIVE (NEGATIVE); BARBITURATE, URINE NEGATIVE (NEGATIVE); BENZODIAZEPINE, URINE NEGATIVE (NEGATIVE); COCCAINE, URINE NEGATIVE (NEGATIVE); OPIATE, URINE NEGATIVE (NEGATIVE); PHENCYCLIDINE SCREEN,URINE NEGATIVE (NEGATIVE)
[2023-12-26 00:33] LABS: APPEARANCE,URINE CLEAR (CLEAR); BILIRUBIN,URINE NEGATIVE (NEGATIVE); BLOOD, URINE TRACE-INTA Ery/uL (NEGATIVE); CANNABINOID, URINE POSITIVE (NEGATIVE); COLOR,URINE YELLOW (YELLOW); KETONES,URINE TRACE mg/dL (NEGATIVE); LEUKOCYTE ESTERASE ,URINE NEGATIVE (NEGATIVE); NITRITE, URINE NEGATIVE (NEGATIVE); PROTEIN,URINE TRACE mg/dl (NEGATIVE); UGLUCOSE NEGATIVE (NEGATIVE)
[2023-12-26 00:58] LABS: ADD URINE CULTURE NO; BACTERIA,URINE Few /HPF (None Seen); MUCUS,URINE Few /LPF (None Seen); SQUAMOUS EPITHELIAL CELL,UR None Seen /HPF (None Seen); WBC,URINE 0-2 /HPF (0-3)
[2023-12-26 06:20] VITALS: BP 139/88; TEMP 98; O2SAT 99
== END 2023-12-26 06:20 | disposition home or self-care (01) ==
LOC: ER 19:02
DX: R45.851 Suicidal ideations (principal); F17.200 Nicotine dependence, unspecified, uncomplicated; J45.909 Unspecified asthma, uncomplicated; Z20.822 Contact with and (suspected) exposure to COVID-19; Z59.00 Homelessness unspecified; Z88.8 Allergy status to other drugs, medicaments and biological substances
CPT/HCPCS: 36415; 80048-TC; 80076-TC; 81001; 85025-TC; G0480

== ENCOUNTER 2024-01-23 03:35 | Emergency (ER) | payer OTHER ==
[~2024-01-23] VITALS: Ht 170.2 cm; Wt 99.8 kg
[2024-01-23 05:48] VITALS: TEMP 97.8
[2024-01-23 07:14] LABS: BASOPHILS % (AUTO) 0.8 % (0.0-2.0); EOSINOPHILS # (AUTO) 0.1 K/uL (0.0-0.7); EOSINOPHILS % (AUTO) 1.1 % (0.0-6.0); HEMATOCRIT 43 % (39-51); HEMOGLOBIN 14.9 g/dL (13.5-17.5); LYMPHOCYTES # (AUTO) 1.7 K/uL (0.8-4.8); LYMPHOCYTES % (AUTO) 34.1 % (20.0-44.0); MEAN CORPUSCULAR HEMOGLOBIN 33 PG (26.0-33.0); MEAN CORPUSCULAR HGB CONC 34 g/dl (31.0-36.0); MEAN CORPUSCULAR VOLUME 96 fL (80-96); MONOCYTES # (AUTO) 0.4 K/uL (0.1-1.30); MONOCYTES % (AUTO) 8.3 % (2.0-12.0); NEUTROPHILS # (AUTO) 2.7 K/uL (1.8-8.9); NEUTROPHILS % (AUTO) 55.7 % (43.0-81.0); PLATELET COUNT (AUTO) 326 K/uL (150-450); RED BLOOD CELL COUNT(AUTO) 4.49 MIL/uL (4.5-6.0); RED CELL DISTRIBUTION WIDTH 14.4 % (11.5-15.0); WHITE BLOOD COUNT (AUTO) 4.9 K/uL (4.3-11.0)
[2024-01-23 07:28] LABS: ALBUMIN 3.8 g/dL (3.4-5.0); BILIRUBIN,TOTAL 0.5 mg/dL (0.2-1.0); CALCIUM, SERUM 8.9 mg/dL (8.5-10.1); CREATININE 0.8 mg/dL (0.6-1.3); POTASSIUM 3.8 mmol/L (3.5-5.1); TOTAL PROTEIN, SERUM 8.3 g/dL (6.4-8.2)
[2024-01-23] MEDS ORDERED: AMLODIPINE BESYLATE 5 MG TABLET ONE (07:44)
[2024-01-23] MEDS: AMLODIPINE BESYLATE 5 MG TABLET PO ONE (07:56)
[2024-01-23] MEDS ORDERED: ALBU8.5H8 INH (07:57)
[2024-01-23] MEDS ORDERED: AMLO-212 PO (07:57)
[2024-01-23] MEDS ORDERED: AZIT250T13 PO (07:57)
[2024-01-23] MEDS: ALBUTEROL FS 2.5 MG/3 ML VIAL.NEB NEB ONE (07:57)
[2024-01-23 08:03] VITALS: BP 211/122; O2SAT 96
== END 2024-01-23 08:03 | disposition left against medical advice (07) ==
LOC: ER 03:49
DX: R05.9 Cough, unspecified (principal); I10 Essential (primary) hypertension; J45.909 Unspecified asthma, uncomplicated; F17.200 Nicotine dependence, unspecified, uncomplicated; Z91.199 Patient's noncompliance with other medical treatment and regimen due to unspecified reason; Z59.00 Homelessness unspecified
CPT/HCPCS: 36415; 71045-TC; 80053-TC; 84484-TC; 85025-TC

== ENCOUNTER 2024-02-27 22:27 | Emergency (ER) | payer OTHER ==
[~2024-02-27] VITALS: Ht 170.2 cm; Wt 95.3 kg
[~2024-02-27 22:27] MED LIST: ALBU8.5H8 INH; AMLO-212 PO; AZIT250T13 PO
[2024-02-27 23:54] LABS: BASOPHILS # (AUTO) 0.2 K/uL (0.0-0.2); EOSINOPHILS % (AUTO) 0.2 % (0.0-6.0); HEMATOCRIT 37 % (39-51); HEMOGLOBIN 12.8 g/dL (13.5-17.5); LYMPHOCYTES # (AUTO) 1.8 K/uL (0.8-4.8); LYMPHOCYTES % (AUTO) 23.3 % (20.0-44.0); MEAN CORPUSCULAR HEMOGLOBIN 33 PG (26.0-33.0); MEAN CORPUSCULAR HGB CONC 35 g/dl (31.0-36.0); MEAN CORPUSCULAR VOLUME 95 fL (80-96); MONOCYTES # (AUTO) 0.7 K/uL (0.1-1.30); MONOCYTES % (AUTO) 8.5 % (2.0-12.0); NEUTROPHILS # (AUTO) 5.1 K/uL (1.8-8.9); PLATELET COUNT (AUTO) 235 K/uL (150-450); RED BLOOD CELL COUNT(AUTO) 3.87 MIL/uL (4.5-6.0); RED CELL DISTRIBUTION WIDTH 13.3 % (11.5-15.0); WHITE BLOOD COUNT (AUTO) 7.8 K/uL (4.3-11.0)
[2024-02-28 00:28] LABS: CALCIUM, SERUM 9.1 mg/dL (8.5-10.1); CARBON DIOXIDE 26 mmol/L (21-32); CHLORIDE 101 mmol/L (98-107); GLUCOSE 117 mg/dL (74-106); POTASSIUM 3.4 mmol/L (3.5-5.1); SODIUM SERUM 138 mmol/L (136-145); UREA NITROGEN, BLOOD 23 mg/dL (7-18)
[2024-02-28 00:33] LABS: ALANINE AMINOTRANSFERASE 67 U/L (12-78); ALCOHOL, BLOOD < 3 mg/dL (0-10); ALKALINE PHOSPHATASE 169 U/L (46-116); ASPARTATE AMINOTRANSFERASE 92 U/L (15-37); BILIRUBIN,DIRECT 0.4 mg/dL (0.0-0.2); BILIRUBIN,TOTAL 1.6 mg/dL (0.2-1.0)
[2024-02-28 00:36] LABS: ACETAMINOPHEN <10 ug/ml (10-30); SALICYLATE < 0.2 mg/dL (2.8-20.0)
[2024-02-28 05:09] LABS: ADD URINE CULTURE NO; APPEARANCE,URINE CLEAR (CLEAR); BACTERIA,URINE Rare /HPF (None Seen); BILIRUBIN,URINE 1+ (NEGATIVE); BLOOD, URINE 2+ Ery/uL (NEGATIVE); COLOR,URINE YELLOW (YELLOW); KETONES,URINE 3+ mg/dL (NEGATIVE); LEUKOCYTE ESTERASE ,URINE NEGATIVE (NEGATIVE); NITRITE, URINE NEGATIVE (NEGATIVE); PROTEIN,URINE 1+ mg/dl (NEGATIVE); RBC,URINE 21-50 /HPF (0-2); SQUAMOUS EPITHELIAL CELL,UR Few /HPF (None Seen); UGLUCOSE NEGATIVE (NEGATIVE)
[2024-02-28 05:18] LABS: AMPHETAMINE, URINE POSITIVE (NEGATIVE); BARBITURATE, URINE NEGATIVE (NEGATIVE); BENZODIAZEPINE, URINE NEGATIVE (NEGATIVE); CANNABINOID, URINE POSITIVE (NEGATIVE); COCCAINE, URINE NEGATIVE (NEGATIVE); OPIATE, URINE NEGATIVE (NEGATIVE); PHENCYCLIDINE SCREEN,URINE NEGATIVE (NEGATIVE)
[2024-02-28 07:20] VITALS: TEMP 98.1
[2024-02-28] MEDS ORDERED: OLANZAPINE 10 MG VIAL IM ONE (12:59)
[2024-02-28] MEDS: OLANZAPINE 10 MG VIAL IM ONE (13:00)
[2024-02-28] MEDS ORDERED: LORAZEPAM 1 MG TABLET ONE (19:43)
[2024-02-28] MEDS: LORAZEPAM 1 MG TABLET PO ONE (19:45)
[2024-02-29 05:35] VITALS: BP 129/70; O2SAT 98
== END 2024-02-29 05:36 | disposition home or self-care (01) ==
LOC: ER 22:29
DX: R45.851 Suicidal ideations (principal); F15.90 Other stimulant use, unspecified, uncomplicated; F17.200 Nicotine dependence, unspecified, uncomplicated; J45.909 Unspecified asthma, uncomplicated; Z59.00 Homelessness unspecified; Z88.8 Allergy status to other drugs, medicaments and biological substances; Z91.018 Allergy to other foods; Z20.822 Contact with and (suspected) exposure to COVID-19
CPT/HCPCS: 99285; 85025; 80048; 80076; 36415; 87426; 80143; 80320; 80307; 96372; J3490; G0480